=== PATIENT | male | born 1980 | race Caucasian/White ===

== ENCOUNTER 2019-02-06 21:07 | Emergency (ER) | payer MEDICAID ==
[~2019-02-06] VITALS: Ht 180.3 cm; Wt 91.0 kg
[2019-02-06 21:31] VITALS: BP 134/100
== END 2019-02-06 23:49 | disposition left against medical advice (07) ==
LOC: ER 21:07
DX: M25.551 Pain in right hip (principal); Z53.21 Procedure and treatment not carried out due to patient leaving prior to being seen by health care provider